=== PATIENT | female | born 1955 | race Caucasian/White ===

== ENCOUNTER 2025-01-13 13:58 | Inpatient (IN) ==
[2025-01-13] MEDS ORDERED: IOPAMIDOL 100 ML BOTTLE IV ONE (13:59)
[2025-01-13] MEDS: ACETAMINOPHEN 1,000 MG/100 ML BAG IV ONE (14:25)
[2025-01-13] MEDS ORDERED: CIPROFLOXACIN 400 MG/200 ML BAG IV SCH (14:45)
[2025-01-13] MEDS: 0.9 % SODIUM CHLORIDE 1,000 ML IV ONE ×2 (14:47→16:26)
[2025-01-13 14:52] LABS: Basophils # (Auto) 0.02 K/mcL (0.00-0.30); Basophils % (Auto) 0.1 % (0.0-2.0); Eosinophils # (Auto) 0 K/mcL (0.00-0.70); Eosinophils % (Auto) 0 % (0.0-7.0); Hematocrit 44.7 % (34.1-44.9); Hemoglobin 14.5 g/dL (11.2-15.7); Lymphocytes # (Auto) 1.42 K/mcL (1.50-4.80); Lymphocytes % (Auto) 5.7 % (15.5-49.0); Mean Cell Volume 91.2 fL (80.0-100.0); Mean Corpuscular HGB Conc 32.4 g/dL (31.0-36.0); Mean Platelet Volume 11.9 fL (8.8-12.5); Monocytes # (Auto) 1.62 K/mcL (0.10-0.90); Monocytes % (Auto) 6.5 % (1.0-12.0); Neutrophils % (Auto) 87.1 % (38.0-78.0); Platelet Count 197 K/mcL (140-440); Red Cell Distribution Width 13.6 % (11.5-14.5)
[2025-01-13] MEDS: fentaNYL 100 MCG/2 ML VIAL IV ONE (15:03)
[2025-01-13] MEDS: LEVOFLOXACIN 750 MG/150 ML BAG IV ONE (15:04)
[2025-01-13 15:08] LABS: ALT/SGPT 27 U/L (<40); AST/SGOT 26 U/L (<32); Albumin 4.1 gm/dL (3.2-5.2); Albumin/Globulin Ratio 1.4 (1.0-2.3); Alkaline Phosphatase 112 U/L (39-117); Bilirubin,Total 0.9 mg/dL (0.1-1.0); Blood Urea Nitrogen 15 mg/dL (8-23); Calcium 9.1 mg/dL (8.6-10.4); Carbon Dioxide 23 mmol/L (22-30); Chloride 103 mmol/L (96-108); Globulin 2.9 gm/dL (2.2-3.7); Glomerular Filtration Rate 57; Glucose 160 mg/dL (70-105); INR 1.1 (0.9-1.1); Potassium 3.7 mmol/L (3.3-5.1); Prothrombin Time 14.2 sec (11.9-14.5); Sodium 142 mmol/L (133-145)
[2025-01-13 17:55] LABS: Appearance,Urine Cloudy (Clear); Bacteria,Urine Few /hpf (0); Bilirubin,Urine Negative (Negative); Color,Urine Yellow; Glucose,Urine (UA) Negative (Negative); Ketones,Urine Negative (Negative); Leukocyte Esterase,Urine Small /uL (Negative); Nitrate,Urine Positive (Negative); PH,Urine >= 9.0 (5.0-9.0); Protein,Urine 100 mg/dL (Negative); Specific Gravity,Urine 1.015 (1.000-1.035); Urine Blood Small ery/mcL (Negative); Urine RBC 0 /hpf (0-3); Urine Squamous Epithelial Cell 1 /hpf (0-4); Urine WBC > 182 /hpf (0-4); Urobilinogen,Urine Normal
[2025-01-13] MEDS ORDERED: POTASSIUM CHLORIDE 40 MEQ in DEXTROSE 5% IN WATER 500 ML IV PRN (20:57)
[2025-01-13] MEDS ORDERED: 0.9 % SODIUM CHLORIDE 500 ML IV PRN (20:57)
[2025-01-13] MEDS ORDERED: NOREPINEPHRINE BITARTRATE 8 MG in 0.9 % SODIUM CHLORIDE 242 ML IV PRN (20:57)
[2025-01-13] MEDS ORDERED: POTASSIUM CHLORIDE 20 MEQ TABLET PO PRN ×2 (20:57)
[2025-01-13] MEDS ORDERED: DEXTROSE 50% 50 ML VIAL IV PRN (20:57)
[2025-01-13] MEDS ORDERED: METOCLOPRAMIDE 10 MG/2 ML VIAL IV PRN (20:57)
[2025-01-13] MEDS ORDERED: IPRATROPIUM/ALBUTEROL 3 ML AMPUL.NEB NEB PRN (20:57)
[2025-01-13] MEDS ORDERED: MAGNESIUM SULFATE 2 GM/50 ML BAG IV PRN (20:57)
[2025-01-13] MEDS ORDERED: POLYETHYLENE GLYCOL 3350 17 GM PACKET PO PRN (20:57)
[2025-01-13] MEDS ORDERED: DEXTROSE 31 GM ORAL.SUSP PO PRN (20:57)
[2025-01-13] MEDS ORDERED: SENNOSIDES 1 TABLET PO PRN (20:57)
[2025-01-13] MEDS: HYDROcodone/APAP 10/325MG TABLET PO ONE (21:06)
[2025-01-13] MEDS: DOCUSATE SODIUM 100 MG CAPSULE PO SCH (21:29)
[2025-01-13] MEDS: INSULIN LISPRO 1 UNIT/0.01 ML UNIT SQ SCH (22:03)
[2025-01-13] MEDS ORDERED: FAMOTIDINE/PF 20 MG/2 ML VIAL IV PRN (22:04)
[2025-01-13] MEDS ORDERED: methylPREDNISolone SOD SUCC 125 MG/2 ML VIAL IV PRN (22:04)
[2025-01-13] MEDS ORDERED: diphenhydrAMINE 25 MG CAPSULE PO PRN (22:04)
[2025-01-13] MEDS: CEFEPIME 1 GM VIAL IV SCH (22:17)
[2025-01-14] MEDS: ONDANSETRON 4 MG/2 ML VIAL IV PRN (04:44)
[2025-01-14] MEDS: ACETAMINOPHEN 325 MG TABLET PO PRN (04:48)
[2025-01-14 07:17] LABS: Basophils # (Auto) 0.04 K/mcL (0.00-0.30); Basophils % (Auto) 0.2 % (0.0-2.0); Eosinophils # (Auto) 0.02 K/mcL (0.00-0.70); Eosinophils % (Auto) 0.1 % (0.0-7.0); Hematocrit 36.2 % (34.1-44.9); Hemoglobin 11.7 g/dL (11.2-15.7); Lymphocytes # (Auto) 3.07 K/mcL (1.50-4.80); Lymphocytes % (Auto) 16.1 % (15.5-49.0); Mean Cell Volume 92.3 fL (80.0-100.0); Mean Corpuscular HGB Conc 32.3 g/dL (31.0-36.0); Mean Platelet Volume 12.1 fL (8.8-12.5); Monocytes # (Auto) 1.41 K/mcL (0.10-0.90); Monocytes % (Auto) 7.4 % (1.0-12.0); Neutrophils % (Auto) 75.9 % (38.0-78.0); Platelet Count 166 K/mcL (140-440); RBC 3.92 M/mcL (3.59-5.38); Red Cell Distribution Width 13.7 % (11.5-14.5); WBC 19.1 K/mcL (4.5-11.0)
[2025-01-14] MEDS ORDERED: CYCLOBENZAPRINE 10 MG TABLET PO PRN (07:37)
[2025-01-14 07:45] LABS: ALT/SGPT 19 U/L (<40); AST/SGOT 20 U/L (<32); Albumin 3.5 gm/dL (3.2-5.2); Albumin/Globulin Ratio 1.4 (1.0-2.3); Alkaline Phosphatase 87 U/L (39-117); Bilirubin,Direct 0.3 mg/dL (<0.3); Bilirubin,Total 0.6 mg/dL (0.1-1.0); Blood Urea Nitrogen 13 mg/dL (8-23); Calcium 8.5 mg/dL (8.6-10.4); Carbon Dioxide 24 mmol/L (22-30); Chloride 107 mmol/L (96-108); Globulin 2.5 gm/dL (2.2-3.7); Glomerular Filtration Rate 75; Glucose 78 mg/dL (70-105); Lactate Dehydrogenase 170 U/L (135-225); Phosphorous 2.8 mg/dL (2.5-4.5); Potassium 3.5 mmol/L (3.3-5.1); Sodium 142 mmol/L (133-145); Triglycerides 94 mg/dL (<150); Uric Acid 5.6 mg/dL (2.5-8.0)
[2025-01-14] MEDS: OMEPRAZOLE 20 MG CAPSULE PO SCH (07:46)
[2025-01-14] MEDS ORDERED: BISMUTH SUBSALICYLATE 15 ML ORAL.SUSP PO PRN (09:14)
[2025-01-14] MEDS: PREGABALIN 75 MG CAPSULE PO SCH (09:41)
[2025-01-14] MEDS: INSULIN GLARGINE, HUMAN 1 UNIT/0.01 ML SQ SCH (09:42)
[2025-01-14] MEDS: ENOXAPARIN 40 MG/0.4 ML SYRINGE SQ SCH (09:42)
[2025-01-14] MEDS: HYDROcodone/APAP 10/325MG TABLET PO PRN (09:45)
[2025-01-14] MEDS: BISMUTH SUBSALICYLATE 15 ML ORAL.SUSP PO ONE (10:38)
[2025-01-14] MEDS: PREGABALIN 150 MG CAPSULE PO SCH (16:55)
[2025-01-14] MEDS ORDERED: PREGABALIN 150 MG CAPSULE PO SCH ×2 (17:30→21:00)
[2025-01-14] MEDS: MELATONIN 3 MG TABLET PO SCH (20:26)
[2025-01-14] MEDS: SIMVASTATIN 40 MG TABLET PO SCH (20:26)
[2025-01-14] MEDS: diphenhydrAMINE 25 MG CAPSULE PO PRN (20:26)
[2025-01-15 06:31] LABS: Basophils # (Auto) 0.02 K/mcL (0.00-0.30); Basophils % (Auto) 0.2 % (0.0-2.0); Eosinophils # (Auto) 0.09 K/mcL (0.00-0.70); Eosinophils % (Auto) 0.8 % (0.0-7.0); Hemoglobin 12.3 g/dL (11.2-15.7); Lymphocytes # (Auto) 2.02 K/mcL (1.50-4.80); Lymphocytes % (Auto) 17.6 % (15.5-49.0); Mean Cell Volume 92.7 fL (80.0-100.0); Mean Corpuscular HGB Conc 32.4 g/dL (31.0-36.0); Mean Platelet Volume 11.8 fL (8.8-12.5); Monocytes # (Auto) 0.79 K/mcL (0.10-0.90); Monocytes % (Auto) 6.9 % (1.0-12.0); Neutrophils % (Auto) 74.2 % (38.0-78.0); Platelet Count 188 K/mcL (140-440); Red Cell Distribution Width 13.7 % (11.5-14.5); WBC 11.5 K/mcL (4.5-11.0)
[2025-01-15 07:12] LABS: ALT/SGPT 19 U/L (<40); AST/SGOT 23 U/L (<32); Albumin 3.6 gm/dL (3.2-5.2); Albumin/Globulin Ratio 1.3 (1.0-2.3); Alkaline Phosphatase 86 U/L (39-117); Bilirubin,Direct < 0.2 mg/dL (0-0.3); Bilirubin,Total 0.3 mg/dL (0.1-1.0); Blood Urea Nitrogen 13 mg/dL (8-23); Calcium 8.6 mg/dL (8.6-10.4); Carbon Dioxide 22 mmol/L (22-30); Chloride 108 mmol/L (96-108); Globulin 2.7 gm/dL (2.2-3.7); Glomerular Filtration Rate 75; Glucose 57 mg/dL (70-105); Lactate Dehydrogenase 179 U/L (135-225); Phosphorous 3.7 mg/dL (2.5-4.5); Potassium 3.5 mmol/L (3.3-5.1); Sodium 145 mmol/L (133-145); Triglycerides 133 mg/dL (<150); Uric Acid 6.3 mg/dL (2.5-8.0)
[2025-01-15] MEDS: PREGABALIN 75 MG CAPSULE PO SCH (09:29)
[2025-01-15] MEDS ORDERED: PREGABALIN 150 MG CAPSULE PO SCH (17:30)
[2025-01-16] MEDS: INSULIN GLARGINE, HUMAN 1 UNIT/0.01 ML SQ SCH (09:23)
[2025-01-16] MEDS: LEVOFLOXACIN 750 MG TABLET PO ONE (10:18)
[2025-01-16 11:09] VITALS: TEMP 98.6; O2SAT 97
== END 2025-01-16 11:20 | disposition home or self-care (01) | DRG 871 ==
LOC: ED 13:58 → ICU 20:57 → MEDSUR 01-14 22:25
PROVIDERS: ADMIT Internal Medicine; ATTEND Internal Medicine